=== PATIENT | female | born 1990 | race Caucasian/White ===

== ENCOUNTER 2017-02-19 04:04 | Emergency (ER) | payer MEDICAID ==
[~2017-02-19] VITALS: Ht 152.4 cm; Wt 53.5 kg
[2017-02-19 04:07] VITALS: Ht 152.4 cm; Wt 53.5 kg
--- NOTE | 2017-02-19 05:30 | ERD ---
ER Documentation Chief Complaint Date/Time DATE: 02/19/17 TIME: 05:25 Chief Complaint SORE THROAT STARTED YESTERDAY WITH SWALLOWING DIFFICULTY AND PAIN HPI This 26-year-old female presents to emergency department today with body aches, fever, pain with swallowing, symptoms started yesterday. Patient denies any sick contacts, nausea vomiting or cough. ROS All systems reviewed and are negative except as per history of present illness. Medications Home Meds No Active Prescriptions or Reported Meds Allergies Allergies: Coded Allergies: No Known Allergy (Unverified , 01/27/16) PMhx/Soc Medical and Surgical Hx: pt denies Medical Hx, pt denies Surgical Hx History of Surgery: No Anesthesia Reaction: No Hx Neurological Disorder: No Hx Respiratory Disorders: No Hx Cardiac Disorders: No Hx Psychiatric Problems: No Hx Miscellaneous Medical Probl: No Hx Alcohol Use: No Hx Substance Use: No Hx Tobacco Use: No Smoking Status: Never smoker Physical Exam Vitals Vital Signs Date Time Temp Pulse Resp B/P Pulse Ox O2 Delivery O2 Flow Rate FiO2 02/19/17 04:07 97.3 90 16 105/74 95 Vitals stable, triage notes reviewed Physical Exam Const: No acute distress Head: Atraumatic Eyes: Normal Conjunctiva PERRLA, EOMI ENT: Tympanic membranes are erythemic nonbulging with positive light reflex, nasal mucosa moist, pharynx beefy red, exudate noted on tonsillar pillars, pharynx, and tonsils, uvula midline without shift. Uvula rises and falls with pronation Neck: Full range of motion..~ No meningismus. Palpable right cervical chain node Resp: Chest rise and fall symmetrically clear to auscultation bilaterally no rales wheezes or rhonchi Cardio: Abd: Soft, non tender, non distended. No hepatosplenomegaly Skin: No petechiae or rashes Back: Ext: Neur: Awake and alert Psych: Normal Mood and Affect Procedures/MDM This 26-year-old female presents to emergency department today with 1 day history of painful swallowing, fever, body aches, without nausea, vomiting, or cough. Scarlet fever, tonsillar abscess, not likely. Physical exam findings supportive strep pharyngitis. Patient will be treated with Pen-Vee K 500 mg 3 times daily 10 days. Continue to treat fever with Tylenol or Motrin, take full course of antibiotics, eat and drink whatever tolerated, increase fluids, increase rest, return to emergency department for worsening of symptoms or if symptoms fail to improve as anticipated. Departure Diagnosis: Primary Impression: Pharyngitis Pharyngitis/tonsillitis etiology: streptococcus Qualified Code: J02.0 - Pharyngitis due to Streptococcus species Condition: Good Patient Instructions: Pharyngitis, Strep (Confirmed) Additional Instructions: Thank you for for coming to for your care today. Please ask your nurse or provider if you have questions about your care today and do not leave until all your questions have been answered. Please use any medications given as directed and follow-up with your doctor (or the doctor you were referred to) in the next 2-3 days. If you do not have a primary care doctor you may follow up at the [facility] (listed below). You may also use motrin and tylenol as needed for fever and/or pain unless instructed otherwise by your provider or nurse. Indications for more urgent follow-up have been discussed, but you may return to the Emergency Department at ANY time for any worrisome or worsening symptoms. If you have abdominal pain, please know that no test or exam you received is perfect and you should follow up within 8 hours for continued pain. If you had any imaging studies today, such as an X-Ray or CT Scan, these studies will be reviewed later by a radiologist. You will be called if there are important findings that were not identified today, so make sure the contact information you provided at registration is correct. If you received any narcotic pain control medicine today, such as Vicodin, Morphine or Dilaudid, your coordination and judgment may be affected for a number of hours. Please do not drive or operate heavy machinery, and you may want someone to assist you at home. If you were given a prescription for narcotic medication, be aware that it is very addictive- use sparingly and only if necessary. TUNG PHAM Feb 19, 2017 05:30
[2017-02-19] MEDS ORDERED: PEN500 PO (05:31)
== END 2017-02-19 05:41 | disposition home or self-care (01) ==
LOC: FTE 04:04
DX: J02.0 Streptococcal pharyngitis (principal)
CPT/HCPCS: 99283

== ENCOUNTER 2018-12-07 10:56 | Emergency (ER) | payer MEDICAID ==
[~2018-12-07] VITALS: Ht 154.9 cm; Wt 54.5 kg
[~2018-12-07 10:56] MED LIST: PENI500T PO
[2018-12-07 11:17] VITALS: Ht 154.9 cm; Wt 54.5 kg
[2018-12-07] MEDS ORDERED: FAMOTIDINE 20 MG INJ IV STA (14:17)
[2018-12-07] MEDS ORDERED: morphine 4 MG/ML VIAL IV STA (14:17)
[2018-12-07] MEDS ORDERED: SOD CHLORIDE 0.9% 1,000 ML IV STA (14:17)
[2018-12-07] MEDS ORDERED: ONDANSETRON 4 MG INJ IV STA (14:17)
[2018-12-07] MEDS ORDERED: HYDR-4011 PO (16:10)
[2018-12-07] MEDS ORDERED: ONDA4TAB14 PO (16:10)
--- NOTE | 2018-12-07 16:16 | ERD ---
ER Documentation Chief Complaint Chief Complaint epigastric pain w/nausea and diarrhea x1wk HPI 28-year-old female presenting with epigastric pain with nausea and vomiting and diarrhea times 1 week. Patient is never had this pain before. She has no chest pain or shortness of breath. Denies medical problems. NKDA. Surgical history denies. Social history denies ROS All systems reviewed and are negative except as per history of present illness. Medications Home Meds Active Scripts Hydrocodone/Acetaminophen ([place] 5-325 Tablet) 1 Each Tablet, 1 TAB PO Q6H PRN for PAIN, #7 TAB Prov:YANNICK MILLER PA-C 12/07/18 Ondansetron (Ondansetron Odt) 4 Mg Tab.rapdis, 4 MG PO Q6H PRN for NAUSEA AND/OR VOMITING, #10 TAB Prov:YANNICK MILLER PA-C 12/07/18 Penicillin V Potassium* (Penicillin V K*) 500 Mg Tab, 500 MG PO TID for 10 Days, TAB Prov:VERO,TUNG 02/19/17 Allergies Allergies: Coded Allergies: No Known Allergy (Unverified , 01/27/16) PMhx/Soc Medical and Surgical Hx: pt denies Medical Hx, pt denies Surgical Hx History of Surgery: No Anesthesia Reaction: No Hx Neurological Disorder: No Hx Respiratory Disorders: No Hx Cardiac Disorders: No Hx Psychiatric Problems: No Hx Miscellaneous Medical Probl: No Hx Alcohol Use: No Hx Substance Use: No Hx Tobacco Use: No Smoking Status: Never smoker FmHx Family History: No diabetes, No coronary disease, No other Physical Exam Vitals Vital Signs Date Temp Pulse Resp B/P (MAP) Pulse Ox O2 O2 Flow FiO2 Time Delivery Rate 12/07/18 97.8 74 18 115/67 100 11:17 (83) Physical Exam GENERAL: The patient is well-appearing, well-nourished, in no acute distress. CHEST: Clear to auscultation bilaterally. There are no rales, wheezes or rhonchi. HEART: Regular rate and rhythm. No murmurs, clicks, rubs or gallops. ABDOMEN: Normal active bowel sounds. No distention. No organomegaly. Tender palpation epigastric region with no rebound tenderness. Result Diagram: 12/07/18 1457 12/07/18 1457 Results 24 hrs Laboratory Tests Test 12/07/18 14:29 12/07/18 14:57 Urine Color YELLOW Urine Clarity SLIGHTLY CLOUDY Urine pH 5.0 Urine Specific [place] 1.030 Urine Ketones 2+ mg/dL Urine Nitrite NEGATIVE mg/dL Urine Bilirubin NEGATIVE mg/dL Urine Urobilinogen NEGATIVE mg/dL Urine Leukocyte Esterase 1+ Melonie/ul Urine Microscopic RBC 2 /HPF Urine Microscopic WBC 3 /HPF Urine Squamous Epithelial Cells MODERATE /HPF Urine Mucus MANY /HPF Urine Hemoglobin NEGATIVE mg/dL Urine Glucose 1+ mg/dL Urine Total Protein 1+ mg/dl Urine Test NEGATIVE White Blood Count 15.8 10^3/ul Red Blood Count 4.91 10^6/ul Hemoglobin 13.1 g/dl Hematocrit 41.5 % Mean Corpuscular Volume 84.5 fl Mean Corpuscular Hemoglobin 26.7 pg Mean Corpuscular Hemoglobin Concent 31.6 g/dl Red Cell Distribution Width 14.1 % Platelet Count 239 10^3/UL Mean Platelet Volume 11.1 fl Immature Granulocytes % 0.600 % Neutrophils % 91.9 % Lymphocytes % 5.1 % Monocytes % 2.1 % Eosinophils % 0.0 % Basophils % 0.3 % Nucleated Red Blood Cells % 0.0 /100WBC Immature Granulocytes # 0.090 10^3/ul Neutrophils # 14.5 10^3/ul Lymphocytes # 0.8 10^3/ul Monocytes # 0.3 10^3/ul Eosinophils # 0.0 10^3/ul Basophils # 0.1 10^3/ul Nucleated Red Blood Cells # 0.0 10^3/ul Sodium Level 141 mmol/L Potassium Level 4.0 mmol/L Chloride Level 110 mmol/L Carbon Dioxide Level 17 mmol/L Anion Gap 14 Blood Urea Nitrogen 11 mg/dl Creatinine 0.54 mg/dl Est Glomerular Filtrat Rate mL/min > 60 mL/min Glucose Level 79 mg/dl Calcium Level 10.0 mg/dl Total Bilirubin 0.4 mg/dl Direct Bilirubin 0.00 mg/dl Indirect Bilirubin 0.4 mg/dl Aspartate Amino Transf (AST/SGOT) 30 IU/L Alanine Aminotransferase (ALT/SGPT) 18 IU/L Alkaline Phosphatase 66 IU/L Total Protein 7.7 g/dl Albumin 4.4 g/dl Globulin 3.30 g/dl Albumin/Globulin Ratio 1.33 Lipase 131 U/L Current Medications Medications Dose Sig/Adolph Start Time Status Last (Trade) Ordered Route PRN Stop Time Admin Dose Reason Admin Sodium 1,000 ml @ Q1H STAT 12/07/18 DC 12/07/18 Chloride 1,000 mls/hr IV 14:17 14:41 12/07/18 15:16 Morphine 4 mg ONCE STAT 12/07/18 DC 12/07/18 Sulfate IV 14:17 14:40 (morphine) 12/07/18 14:18 Ondansetron 4 mg ONCE STAT 12/07/18 DC 12/07/18 HCl (Zofran IV 14:17 14:40 Inj) 12/07/18 14:18 Famotidine 20 mg ONCE STAT 12/07/18 DC 12/07/18 (Pepcid Iv) IV 14:17 14:40 12/07/18 14:18 Procedures/MDM DIAGNOSTIC IMAGING REPORT Patient: DELL STOCKTON : 1990 Age: 28 Sex: F MR #: [id number] DOS: 12/07/18 0000 Ordering MD: MAYLIN MILLER PA-C Location: [facility] Room/Bed: PROCEDURE: US Abdomen (right upper quadrant). CLINICAL INDICATION: Abdominal pain TECHNIQUE: Multiple real-time longitudinal and transverse images of the right upper quadrant of the abdomen were acquired utilizing a curved array transducer. Images were reviewed on a high-resolution PACS workstation. COMPARISON: None FINDINGS: The liver is normal in size and echogenicity without focal mass or intrahepatic biliary dilatation. The gallbladder is normal. There is no pericholecystic fluid or gallbladder wall thickening or gallstones. No intra or extrahepatic biliary dilatation is seen. The common bile duct measures 3.7 mm in maximal dimension. The visualized portions of the pancreas are unremarkable with obscuration of the tail of the pancreas. No free fluid is identified. The right kidney measures 10.3 cm in length. There is normal echogenicity within the right kidney. There is no perinephric fluid collection. No hydronephrosis, mass, or calculus is seen. IMPRESSION: Unremarkable right upper quadrant ultrasound. MDM: 28-year-old female presenting with epigastric pain. Her son and blood work are within normal limits. Patient does have some findings of acidosis and possible dehydration however she is tolerating p.o.'s in the ER and was given fluids in the emergency room. I have low suspicion for infectious etiology. I have low suspicion for choledocholithiasis, cholecystitis or pancreatitis. I have low suspicion for cholangitis. Patient is discharged stricter precautions and supportive medications. Patient is told if symptoms change or worsen to return the ER. All questions answered at discharge Departure Diagnosis: Primary Impression: Epigastric pain Condition: Stable Patient Instructions: Epigastric Pain (Uncertain Cause) Referrals: [facility] YOU HAVE RECEIVED A MEDICAL SCREENING EXAM AND THE RESULTS INDICATE THAT YOU DO NOT HAVE A CONDITION THAT REQUIRES URGENT TREATMENT IN THE EMERGENCY DEPARTMENT. FURTHER EVALUATION AND TREATMENT OF YOUR CONDITION CAN WAIT UNTIL YOU ARE SEEN IN YOUR DOCTORS OFFICE WITHIN THE NEXT 1-2 DAYS. IT IS YOUR RESPONSIBILITY TO M SEBLE AN APPOINTMENT FOR FOLOW-UP CARE. IF YOU HAVE A PRIMARY DOCTOR --you should call your primary doctor and schedule an appointment IF YOU DO NOT HAVE A PRIMARY DOCTOR YOU CAN CALL OUR PHYSICIAN REFERRAL HOTLINE AT IF YOU CAN NOT AFFORD TO SEE A PHYSICIAN YOU CAN CHOSE FROM THE FOLLOWING [facility] [address] [facility] [address] [facility] [facility] [address] [facility] [address] [facility] [address] [facility]. [address] Additional Instructions: FOLLOW UP WITH YOUR PRIMARY CARE PHYSICIAN TOMORROW.Return to this facility if you are not improving as expected. YANNICK MILLER PA-C Dec 07, 2018 16:16
[2018-12-07 16:50] VITALS: BP 101/64; PULSE 75; RESP 18
== END 2018-12-07 16:51 | disposition home or self-care (01) ==
LOC: FTE 10:56
DX: R10.13 Epigastric pain (principal)
CPT/HCPCS: 36415; 76705; 80053; 81001; 83690; 84703; 85025; 96361; 96374; 96375; J2270; J2405; J7030; Z7502; Z7610